=== PATIENT | male | born 1945 | race Caucasian/White ===

== ENCOUNTER 2018-06-06 13:31 | Outpatient (CLI) | payer MEDICARE, OTHER | END 2018-06-06 23:59 | disposition home or self-care (01) | LOC: RAD 13:31 | PROVIDERS: ATTEND Student in an Organized Health Care Education/Training Program | DX: R13.12 Dysphagia, oropharyngeal phase (principal); R13.14 Dysphagia, pharyngoesophageal phase; R47.1 Dysarthria and anarthria; R49.0 Dysphonia; K21.9 Gastro-esophageal reflux disease without esophagitis; G20 Parkinson's disease | CPT/HCPCS: 74230 ==